=== PATIENT | female | born 1955 | race Caucasian/White ===

== ENCOUNTER 2025-01-27 11:15 | Outpatient (CLI) | payer BC, SELFPAY ==
[2025-01-27 11:14] LABS: Abs Immature Grans 0.02 10^3/uL (0.0-0.06); HCT 27.8 % (36.0-46.0); HGB 9.2 g/dL (11.2-15.7); MCH 32.4 pg (27.0-33.0); MCHC 33.1 % (32.0-36.0); MCV 98 fL (80-95); MPV 10.2 fL (8.0-11.0); RBC 2.84 10^6/uL (3.93-5.22); RDW 12.2 % (11.7-14.6); RDW-SD 44.1 fL; WBC 2.49 10^3/uL (4.4-10.8)
[2025-01-27 11:29] LABS: ALT 22 U/L (14-59); AST 24 U/L (15-37); Albumin 3.4 g/dL (3.4-5.0); Alkaline Phosphatase 93 U/L (46-116); Anion Gap 10.3 mmol/L (3-11); BUN 26 mg/dL (7-18); Bilirubin, Total 0.2 mg/dL (0.2-1.0); CO2 29.7 mmol/L (21.0-32.0); Calcium 9.1 mg/dL (8.5-10.1); Chloride 99 mmol/L (98-107); Estimated GFR 61.36 (mL/min/1.73m2); Glucose 150 mg/dL (74-106); Potassium 3.2 mmol/L (3.5-5.1); Sodium 139 mmol/L (136-145); Total Protein 7.7 g/dL (6.4-8.2)
[2025-01-27 11:39] LABS: Absolute Eosinophil Count 0.02 10^3/uL (0.0-0.7); Absolute Neutrophil Count 1.59 10^3/uL (1.2-6.7); Bands % 9 %; Diff Comment Manual Differential; Metamyelocytes % 2; Myelocytes % 1; RBC Morphology Normal
[2025-01-27 11:43] LABS: Platelet Count 27 10^3/uL (130-400)
== END 2025-01-27 11:16 | disposition home or self-care (01) ==
LOC: LBO 11:16
PROVIDERS: Visit Provider Internal Medicine Hematology
DX: C11.9 Malignant neoplasm of nasopharynx, unspecified (principal)
CPT/HCPCS: 36415; 80053; 85025

== ENCOUNTER 2025-01-27 12:22 | Emergency (ER) | payer BC, SELFPAY ==
[2025-01-27] VITALS (32 sets, daily range): BP systolic 114–140; BP diastolic 60–96; PULSE 58–72; RESP 11–25; TEMP 36.7–37.4; O2SAT 93–100
--- NOTE | 2025-01-27 12:29 | ED.GENADUL_ITS ---
Discharge Plan Disposition Patient Disposition: Home Discharge Details Clinical Impression: Nausea & vomiting Primary Care Provider: Brian Escalante ED Provider: Yash Blue Home Meds and New Rx's Prescriptions: Continued ondansetron HCl 4 mg tablet 4 mg PO Q8H Patient Comments: TAKE 1 TABLET BY MOUTH EVERY 8 HOURS NEEDED FOR NAUSEA AND VOMITING levothyroxine 75 mcg tablet 75 mcg PO DAILY Patient Comments: TAKE 1 TABLET BY MOUTH EVERY DAY mirtazapine 15 mg tablet 15 mg PO DAILY Patient Comments: TAKE 1 TABLET BY MOUTH DAILY AT BEDTIME Xtampza ER 9 mg cap,sprinkl,ER12hr(DONT CRUSH) 9 mg PO Q12H PRN (Reason: pain) Discharge Instructions Additional Instructions: You are seen in the emergency department for your nausea and vomiting. Your blood work shows that your kidneys are working well. You are slightly dehydrated for which you received IV fluids. As we discussed please take your previously prescribed nausea medications at home. Please discontinue taking your apixaban/Eliquis as you are platelet count is low and this medication can cause bleeding. Please follow-up with your oncologist concerning the timing as to when to resume taking this blood thinner. If you develop nausea or vomiting that does not stop please return to the emergency department. Even if you feel nauseous please ensure that you are eating and drinking since you urinate at least once every 8 hours while awake. If you pass out feel weak or develop vomiting that does not stop or develop any abdominal pain please return to the emergency department. Otherwise please follow-up with the oncology team tomorrow. HPI General Date/Time Provider Initiated Documentation: 01/27/25 12:29 . HPI Narrative: MDM This is an overall quite well-appearing normothermic and not tachycardic 69-year-old female with nausea but no vomiting or abdominal pain. In the absence of shortness of breath I am not suspicious for pneumo toxicity. Will assess for renal failure. In setting of carboplatin will assess for low blood counts and electrolyte abnormalities. Will also check for nephrotoxicity. In the absence of abdominal pain I am not concerned for appendicitis. Patient may have metastatic disease or simply have complication from her chemotherapy. In the absence of back pain I am not concerned for spinal metastasis. Patient has not had a CT scan in the past year of her abdomen however in the absence of abdominal pain it did not feel that she requires an emergent CT scan. Not suspicious for obstruction as she had a bowel movement yesterday has not been vomiting. Furthermore she has a soft nontender abdomen. No chest pain to suggest PE and no hypoxia tachycardia nor hypotension so do not feel the patient requires CT angiogram of her chest. No history of nephrolithiasis making my suspicion lower for ureterallithiasis. No fevers or diarrhea to suggest diverticulitis and no left lower quadrant pain. No headache and not altered make my suspicion low for intracranial hemorrhage so I do not feel the patient where CT scan of her chest. I considered sepsis however the patient has normal thermic not tachycardic and has a normal blood pressure so I did not treat empirically with broad-spectrum antibiotics nor check a lactate. No epigastric tenderness to suggest pancreatitis. No rash to abdomen to suggest zoster. No shortness of breath nor abdominal pain to suggest ACS so did not obtain ECG. 1:40 PM CBC similar to prior dated earlier today showing leukopenia and lymphopenia. Macrocytic anemia. Thrombocytopenia with 30K platelets. Compared to prior labs at [facility] system. Leukopenia similar. Anemia has improved. Thrombocytopenia is new compared to labs from last month. No petechiae to suggest spontaneous bleed. Oncology note appreciated from Dr. Escalante [facility] oncology. Will hold oral anticoagulation given thrombocytopenia below 50,000. 2 PM I met with the patient. She felt improved. Her labs are fairly reassuring. She has very mild hypokalemia with a serum potassium of 3.4. She does have a slight elevation in her BUN at 24. When this was last checked in the [facility] system it was 12. Glucose very slightly elevated at 116. I was in touch with from Dr. Escalante [facility] oncology he arranged for outpatient recheck tomorrow with labs with IV fluids. He also called in a prescription for potassium supplementation. Patient reports that she is adequate analgesia at home. I advised patient that she should continue eating and drinking despite her mild lingering nausea. She has not been vomiting so I feel that she is appropriate for empiric trial of discharge with expectant outpatient management. I also a dvised her that I did not know which direction her symptoms would go. I advised if she developed worsening nausea began vomiting or did not urinate at least once every 8 hours while awake that she should return to the emergency department. We also discussed that she should return to the emergency department if she develop any abdominal pain. She understood her return indications and will follow-up with her oncology team tomorrow. 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 Patient has remote history of feeding tube. She said that it was removed more than a year ago she is able to take some food. She has remote surgical history significant for tubal ligation. She last had a bowel movement yesterday and was slightly hard which is not abnormal for her. She has had no fevers chest pain shortness of breath. She denies dysuria and history of nephrolithiasis. She denies abdominal pain or vomiting. She has been nauseous. She attempted treatment at home this morning with ondansetron. Her last dose of chemotherapy was ordered 16 January. Exam General: Well-appearing in no acute distress speaking in complete sentences. Head: Normocephalic, atraumatic. Eye: Extraocular eye movements intact. No conjunctival injection. No scleral icterus. Ear, nose, mouth, throat: Grossly normal inspection. Normal voice, handling secretions normally. Neck: Trachea midline. Cardiovascular: Well-perfused distal extremities. Respiratory: Nonlabored respiration. Clear lungs bilaterally. Gastrointestinal: Nondistended abdomen. Soft. Nontender. Left-sided healed G- tube site nontender. No rebound. No guarding. Musculoskeletal: No edema. Moving all 4 extremities spontaneously. Skin: Normal for age and race, grossly normal temperature and turgor. No acute rash. Neurologic: Alert and appropriate, no apparent acute deficits. Psychiatric: Mood and manner are appropriate. Grooming and personal hygiene are appropriate. Related Data Home Medications ?Medication ?Instructions ?Recorded ?Confirmed levothyroxine 75 mcg tablet 75 mcg PO DAILY 01/27/25 01/27/25 mirtazapine 15 mg tablet 15 mg PO DAILY 01/27/25 01/27/25 ondansetron HCl 4 mg tablet 4 mg PO Q8H 01/27/25 01/27/25 oxycodone myristate 9 mg capsule 9 mg PO Q12H PRN pain 01/27/25 01/27/25 sprinkle extended release 12 hr(DON'T CRUSH) (Xtampza ER) Allergies Allergy/AdvReac Type Severity Reaction Status Date / Time No Known Allergies Allergy Unverified 01/27/25 12:34 Medical Decision Making Quality:SDOH Health Related Social Needs: No Data to Display PFSH All Active Problems (Updated 01/27/25 @ 13:18 by Yash Blue MD) Nausea & vomiting (Acute) Social History Smoking risk assessment performed?: No
[2025-01-27 13:14] LABS: Abs Immature Grans 0.02 10^3/uL (0.0-0.06); HCT 30.1 % (36.0-46.0); HGB 9.7 g/dL (11.2-15.7); MCH 31.5 pg (27.0-33.0); MCHC 32.2 % (32.0-36.0); MCV 98 fL (80-95); MPV 11.5 fL (8.0-11.0); RBC 3.08 10^6/uL (3.93-5.22); RDW 12.3 % (11.7-14.6); RDW-SD 43.7 fL; WBC 2.84 10^3/uL (4.4-10.8)
[2025-01-27] MEDS: Ondansetron 4 MG/2 ML VIAL IVP (13:16)
[2025-01-27] MEDS: Normal Saline 500 ML 1000 ML IV (13:23)
[2025-01-27 13:33] LABS: Absolute Basophil Count 0.03 10^3/uL (0.0-0.2); Absolute Lymphocyte Count 0.57 10^3/uL (1.2-3.4); Absolute Monocyte Count 0.28 10^3/uL (0.1-0.8); Absolute Neutrophil Count 1.85 10^3/uL (1.2-6.7); Bands % 9 %; Diff Comment Manual Differential; Metamyelocytes % 3; Myelocytes % 1; RBC Morphology Normal
[2025-01-27 13:34] LABS: Platelet Count 30 10^3/uL (130-400)
[2025-01-27 13:53] LABS: ALT 21 U/L (14-59); AST 24 U/L (15-37); Albumin 3.3 g/dL (3.4-5.0); Alkaline Phosphatase 90 U/L (46-116); Anion Gap 10.2 mmol/L (3-11); BUN 24 mg/dL (7-18); Bilirubin, Total 0.2 mg/dL (0.2-1.0); CO2 30.8 mmol/L (21.0-32.0); CREATININE 0.9 mg/dL (0.55-1.02); Calcium 9.1 mg/dL (8.5-10.1); Chloride 100 mmol/L (98-107); Estimated GFR 69.64 (mL/min/1.73m2); Glucose 116 mg/dL (74-106); Potassium 3.4 mmol/L (3.5-5.1); Sodium 141 mmol/L (136-145); Total Protein 7.4 g/dL (6.4-8.2)
[2025-01-27] MEDS: Ondansetron 4 MG/2 ML VIAL 2 MG IVP (14:52)
== END 2025-01-27 15:58 | disposition home or self-care (01) ==
PROVIDERS: Emergency Provider Emergency Medicine; PCP Internal Medicine Hematology
DX: R11.2 Nausea with vomiting, unspecified (principal)
CPT/HCPCS: 99284; 99283; 96374; 80053; 85025; J2405

== ENCOUNTER 2025-01-28 15:10 | Outpatient (REF) | payer BC, SELFPAY ==
[2025-01-28 15:02] LABS: HCT 25.5 % (36.0-46.0); HGB 8.3 g/dL (11.2-15.7); MCH 32.2 pg (27.0-33.0); MCHC 32.5 % (32.0-36.0); MCV 99 fL (80-95); MPV 11.9 fL (8.0-11.0); RBC 2.58 10^6/uL (3.93-5.22); RDW 12.3 % (11.7-14.6); RDW-SD 44.4 fL; WBC 2.46 10^3/uL (4.4-10.8)
[2025-01-28 15:16] LABS: Absolute Lymphocyte Count 0.98 10^3/uL (1.2-3.4); Absolute Monocyte Count 0.12 10^3/uL (0.1-0.8); Absolute Neutrophil Count 1.35 10^3/uL (1.2-6.7); Atypical Lymphocytes % 2 %; Bands % 4 %
[2025-01-28 15:17] LABS: Diff Comment Manual Differential; RBC Morphology Normal
[2025-01-28 15:20] LABS: ALT 20 U/L (14-59); AST 22 U/L (15-37); Albumin 3.5 g/dL (3.4-5.0); Alkaline Phosphatase 90 U/L (46-116); Anion Gap 5.7 mmol/L (3-11); BUN 20 mg/dL (7-18); Bilirubin, Total 0.2 mg/dL (0.2-1.0); CO2 34.3 mmol/L (21.0-32.0); Calcium 9.3 mg/dL (8.5-10.1); Chloride 100 mmol/L (98-107); Estimated GFR 61.36 (mL/min/1.73m2); Glucose 109 mg/dL (74-106); Potassium 3.5 mmol/L (3.5-5.1); Sodium 140 mmol/L (136-145); Total Protein 7.9 g/dL (6.4-8.2)
[2025-01-28 15:23] LABS: Platelet Count 18 10^3/uL (130-400)
== END 2025-01-28 15:11 | disposition home or self-care (01) ==
LOC: LBN 15:10
PROVIDERS: PCP Internal Medicine Hematology; Visit Provider Internal Medicine Hematology
DX: C11.9 Malignant neoplasm of nasopharynx, unspecified (principal)
CPT/HCPCS: 80053; 85025

== ENCOUNTER 2025-02-03 12:27 | Outpatient (CLI) | payer BC, SELFPAY ==
[2025-02-03 12:58] LABS: HCT 21.1 % (36.0-46.0); MCH 31.9 pg (27.0-33.0); MCHC 32.2 % (32.0-36.0); MCV 99 fL (80-95); MPV 10.3 fL (8.0-11.0); RBC 2.13 10^6/uL (3.93-5.22); RDW-SD 43.2 fL
[2025-02-03 13:17] LABS: Absolute Lymphocyte Count 0.35 10^3/uL (1.2-3.4); Absolute Monocyte Count 0.13 10^3/uL (0.1-0.8); Absolute Neutrophil Count 1.44 10^3/uL (1.2-6.7); Bands % 4 %; HGB 6.8 g/dL (11.2-15.7); Platelet Count 34 10^3/uL (130-400); WBC 1.92 10^3/uL (4.4-10.8)
[2025-02-03 13:18] LABS: ALT 35 U/L (14-59); AST 44 U/L (15-37); Albumin 3.3 g/dL (3.4-5.0); Alkaline Phosphatase 94 U/L (46-116); Anion Gap 6.8 mmol/L (3-11); BUN 21 mg/dL (7-18); Bilirubin, Total 0.2 mg/dL (0.2-1.0); CO2 32.2 mmol/L (21.0-32.0); CREATININE 1.2 mg/dL (0.55-1.02); Calcium 9.6 mg/dL (8.5-10.1); Chloride 99 mmol/L (98-107); Diff Comment Manual Differential; Estimated GFR 49.31 (mL/min/1.73m2); Glucose 141 mg/dL (74-106); Potassium 3.9 mmol/L (3.5-5.1); RBC Morphology Normal; Sodium 138 mmol/L (136-145); Total Protein 7.7 g/dL (6.4-8.2)
== END 2025-02-03 12:28 | disposition home or self-care (01) ==
LOC: LBO 12:27
PROVIDERS: PCP Internal Medicine Hematology; Visit Provider Internal Medicine Hematology
DX: C11.9 Malignant neoplasm of nasopharynx, unspecified (principal)
CPT/HCPCS: 36415; 80053; 85025

== ENCOUNTER 2025-02-04 07:51 | Outpatient (RCR) | payer BC, SELFPAY ==
[2025-02-04 11:28] VITALS: BP 89/46; PULSE 50; RESP 18; TEMP 36.4; O2SAT 100
[2025-02-04 11:43] VITALS: BP 98/51; PULSE 53; RESP 20; TEMP 36.5; O2SAT 100
[2025-02-04 12:10] VITALS: BP 149/80; PULSE 63; RESP 22; TEMP 36.4; O2SAT 99
[2025-02-04 12:36] VITALS: BP 112/68; PULSE 54; RESP 20; TEMP 36.5; O2SAT 99
[2025-02-04] MEDS: Normal Saline Flush 5 ML SYR IVP (13:03)
[2025-02-04 13:08] VITALS: BP 88/51; PULSE 53; RESP 18; TEMP 35.9; O2SAT 98
[2025-02-04 13:50] VITALS: BP 94/57; PULSE 50; RESP 19; TEMP 36.2; O2SAT 100
== END 2025-03-01 23:59 | disposition home or self-care (01) ==
LOC: INF 07:51
PROVIDERS: PCP Internal Medicine Hematology; Visit Provider Internal Medicine Medical Oncology
DX: C11.9 Malignant neoplasm of nasopharynx, unspecified (principal)
CPT/HCPCS: 36415; 36430; 86850; 86900; 86901; 86920; P9016